=== PATIENT | male | born 1945 | race African-American/Black ===

== ENCOUNTER 2017-09-07 15:39 | Inpatient (IN) | payer OTHER ==
[~2017-09-07] VITALS: Ht 185.4 cm; Wt 79.4 kg
--- NOTE | 2017-09-07 16:02 | Emergency Room Report ---
History of Present Illness General Chief Complaint: Altered Level of Consciousness Source: EMS Present Illness HPI 71-year-old male, unknown past medical history with the exception of ? Recent pacemaker implantation, brought by EMS after being found altered home by family. EMS states that family called, patient was found down on the floor, not responding. No other history is able to be obtained as patient is awake and looking however not providing much history Allergies: Coded Allergies: No Known Allergies (Unverified , 09/07/17) Patient History Past Medical History: see triage record Past Surgical History: none Pertinent Family History: none Reviewed Nursing Documentation: PMH: Agreed, PSxH: Agreed Nursing Documentation-PMH Hx Cardiac Problems: Yes - Pacer Hx Hypertension: Yes Hx Pacemaker: Yes Review of Systems All Other Systems: limited - not giving history/altered Physical Exam Vital Signs Date Time Temp Pulse Resp B/P (MAP) Pulse Ox O2 Delivery O2 Flow Rate FiO2 09/07/17 15:47 98.4 84 16 90/64 98 Room Air Sp02 EP Interpretation: reviewed, normal General Appearance: other - Elderly male, sleeping but arousable, not answering questions, does not appear to be in distress Head: normocephalic, atraumatic Eyes: bilateral eye normal inspection, bilateral eye PERRL, bilateral eye EOMI ENT: normal ENT inspection, normal pharynx, normal voice, moist mucus membranes Neck: normal inspection, full range of motion, supple Respiratory: normal inspection, lungs clear, normal breath sounds, no respiratory distress, no retraction, no wheezing, chest symmetrical Cardiovascular #1: normal inspection, regular rate, rhythm, normal capillary refill, other - L upper chest with pacemaker incision eduardo, clean incision, no purulent drainage no erythema Cardiovascular #2: 2+ radial (R), 2+ radial (L) Gastrointestinal: normal inspection, non tender, soft, non-distended, no guarding Genitourinary: no CVA tenderness Musculoskeletal: normal inspection, back normal, non-tender Neurologic: other - Respond and most pain, opens eyes, visual contact, moves extremities spontaneously, however not providing history, lethargic Skin: normal inspection, normal color, no rash, warm/dry, well hydrated, normal turgor Medical Decision Making Diagnostic Impression: Primary Impression: Altered level of consciousness Additional Impressions: NSTEMI (non-ST elevated myocardial infarction) Renal failure Hypocalcemia Hyperkalemia ER Course 71-year-old male with altered mental status DDX: hypovolemic/dehydration vs. cardiac) vs. metabolic (hypoglycemia, hypoxia), vs neuro (seizure, CVA, intracranial bleed) Versus intoxication Plan: bgm, cbc, bmp, ekg, cxr CT head ER course: Patient initially hypotensive, responsive to fluids, now blood pressure systolic 110 Continues to be altered, can say his name and and then goes back to sleep, moves his extremities spontaneously, CT head is negative for acute intracranial disease Labs are remarkable for hypocalcemia which was supplemented, mild hyperkalemia, also with a troponin of 0.11 Heparin bolus and heparin drip given patient positive for opiates, 0.4mg narcan given -- pt is now more awake now Disposition: Patient requires admission to telemetry. Patient requires further workup of syncopal episode, further lab testing, serial troponins, cardiac monitoring D/W hospitalist Dr Contreras Please note that this Emergency Department Report was dictated using Topicmarksbit tripoler technology software, occasionally this can lead to erroneous entry secondary to interpretation by the dictation equipment EKG Diagnostic Results EP Interpretation: Yes Rate: normal Rhythm: NSR ST Segments: Atrial paced rhythm, T wave flattening in aVL ASA given to patient: No Rhythm Strip EP Interpretation: Yes Rate: 86 Rhythm: NSR, no PVCs, no ectopy Chest X-ray CXR: Ordered: Yes 1 view Indication: Altered mental status EP interpretation: Yes Interpretation: cardiomegaly, no infiltrate, pacemaker with leads noted Impression: cardiomegaly Electronically signed by Stephie Taylor MD Laboratory Tests Test 09/07/17 16:05 09/07/17 16:37 09/07/17 17:41 09/07/17 18:45 White Blood Count 9.0 K/UL (4.8-10.8) Red Blood Count 4.69 M/UL (4.70-6.10) L Hemoglobin 10.2 G/DL (14.2-18.0) L Hematocrit 34.7 % (42.0-52.0) L Mean Corpuscular Volume 74 FL (80-99) L Mean Corpuscular Hemoglobin 21.7 PG (27.0-31.0) L Mean Corpuscular Hemoglobin Concent 29.4 G/DL (32.0-36.0) L Red Cell Distribution Width 20.5 % (11.6-14.8) H Platelet Count 156 K/UL (150-450) Mean Platelet Volume 8.4 FL (6.5-10.1) Neutrophils (%) (Auto) 74.7 % (45.0-75.0) Lymphocytes (%) (Auto) 9.5 % (20.0-45.0) L Monocytes (%) (Auto) 13.3 % (1.0-10.0) H Eosinophils (%) (Auto) 1.4 % (0.0-3.0) Basophils (%) (Auto) 1.2 % (0.0-2.0) Prothrombin Time 12.8 SEC (9.30-11.50) H Prothrombin Time INR 1.2 (0.9-1.1) H PTT 31 SEC (23-33) Sodium Level 135 MMOL/L (136-145) L Potassium Level 5.5 MMOL/L (3.5-5.1) H Chloride Level 98 MMOL/L (98-107) Carbon Dioxide Level 23 MMOL/L (21-32) Anion Gap 14 mmol/L (5-15) Blood Urea Nitrogen 81 mg/dL (7-18) H Creatinine 3.5 MG/DL (0.55-1.30) H Estimate Glomerular Filtration Rate 21.1 mL/min (>60) Glucose Level 94 MG/DL (74-106) Calcium Level < 5.0 MG/DL (8.5-10.1) *L Total Bilirubin 1.4 MG/DL (0.2-1.0) H Direct Bilirubin < 0.1 MG/DL (0.0-0.3) Aspartate Amino Transferase (AST) 131 U/L (15-37) H Alanine Aminotransferase (ALT) 47 U/L (12-78) Alkaline Phosphatase 174 U/L (46-116) H Total Creatine Kinase < 1 U/L (26-308) L Creatine Kinase MB 25.4 NG/ML (0.0-3.6) H Creatine Kinase MB Relative Index 2500.0 Troponin I 0.117 ng/mL (0.000-0.056) Pro-B-Type Natriuretic Peptide 4865 pg/mL (0-125) H Total Protein 7.2 G/DL (6.4-8.2) Albumin 3.2 G/DL (3.4-5.0) L Globulin 4.0 g/dL Albumin/Globulin Ratio 0.8 (1.0-2.7) L Serum Alcohol < 3 mg/dL Lactic Acid Level 2.10 mmol/L (0.66-2.22) Pending Urine Color Yellow Urine Appearance Clear Urine pH 6 (4.5-8.0) Urine Specific [place] 1.010 (1.005-1.035) Urine Protein 1+ (NEGATIVE) H Urine Glucose (UA) Negative (NEGATIVE) Urine Ketones Negative (NEGATIVE) Urine Occult Blood 1+ (NEGATIVE) H Urine Nitrite Negative (NEGATIVE) Urine Bilirubin Negative (NEGATIVE) Urine Urobilinogen 1 MG/DL (0.0-1.0) H Urine Leukocyte Esterase Negative (NEGATIVE) Urine RBC 2-4 /HPF (0 - 0) H Urine WBC 0-2 /HPF (0 - 0) Urine Squamous Epithelial Cells None /LPF (NONE/OCC) Urine Bacteria Few /HPF (NONE) Urine Opiates Screen Positive (NEGATIVE) H Urine Barbiturates Screen Negative (NEGATIVE) Phencyclidine (PCP) Screen Negative (NEGATIVE) Urine Amphetamines Screen Negative (NEGATIVE) Urine Benzodiazepines Screen Negative (NEGATIVE) Urine Cocaine Screen Negative (NEGATIVE) Urine Marijuana (THC) Screen Negative (NEGATIVE) Test 09/07/17 19:16 Sodium Level Pending Potassium Level Pending Chloride Level Pending Carbon Dioxide Level Pending Blood Urea Nitrogen Pending Creatinine Pending Estimate Glomerular Filtration Rate Pending Glucose Level Pending Calcium Level Pending Total Bilirubin Pending Aspartate Amino Transferase (AST) Pending Alanine Aminotransferase (ALT) Pending Alkaline Phosphatase Pending Troponin I Pending Total Protein Pending Albumin Pending Globulin Pending CT/MRI/US Diagnostic Results CT/MRI/US Diagnostic Results : Imaging Test Ordered: CT Head Last Vital Signs Date Time Temp Pulse Resp B/P (MAP) Pulse Ox O2 Delivery O2 Flow Rate FiO2 09/07/17 15:47 98.4 84 16 90/64 98 Room Air Disposition: ADMITTED INPATIENT Condition: Stephie Lujan M.D. Sep 07, 2017 16:02
[2017-09-07] MEDS ORDERED: ASPIR 8181 MG ORAL (16:38)
[2017-09-07 16:41] LABS: ANION GAP 14 mmol/L (5-15); CARBON DIOXIDE 23 MMOL/L (21-32); CHLORIDE 98 MMOL/L (98-107); CREATININE 3.5 MG/DL (0.55-1.30); GLOMERULAR FILTRATION RATE 21.1 mL/min (>60); POTASSIUM 5.5 MMOL/L (3.5-5.1); SODIUM 135 MMOL/L (136-145)
[2017-09-07 16:43] LABS: BASOPHILS % (AUTO) 1.2 % (0.0-2.0); EOSINOPHILS % (AUTO) 1.4 % (0.0-3.0); LYMPHOCYTES % (AUTO) 9.5 % (20.0-45.0); MEAN CORPUSCULAR HEMOGLOBIN 21.7 PG (27.0-31.0); MEAN CORPUSCULAR HGB CONC 29.4 G/DL (32.0-36.0); MEAN CORPUSCULAR VOLUME 74 FL (80-99); MEAN PLATELET VOLUME 8.4 FL (6.5-10.1); MONOCYTES % (AUTO) 13.3 % (1.0-10.0); NEUTROPHILS % (AUTO) 74.7 % (45.0-75.0); PLATELET COUNT 156 K/UL (150-450); RED BLOOD COUNT 4.69 M/UL (4.70-6.10); RED CELL DISTRIBUTION WIDTH 20.5 % (11.6-14.8)
[2017-09-07 16:55] LABS: ALANINE AMINOTRANSFERASE 47 U/L (12-78); ALBUMIN/GLOBULIN RATIO 0.8 (1.0-2.7); ASPARTATE AMINO TRANSFERASE 131 U/L (15-37); CKMB 25.4 NG/ML (0.0-3.6); TOTAL PROTEIN 7.2 G/DL (6.4-8.2)
[2017-09-07 16:59] LABS: CALCIUM < 5.0 MG/DL (8.5-10.1)
[2017-09-07 17:01] LABS: BILIRUBIN,DIRECT < 0.1 MG/DL (0.0-0.3)
[2017-09-07] MEDS ORDERED: Calcium Gluconate 1gm/10ml vial ONE (17:05)
[2017-09-07] MEDS ORDERED: Calcium Gluconate 10% 1 GM in NS 110 ML IVPB ONE (17:15)
[2017-09-07 17:17] LABS: REFLEX LACTIC ACID YES OR NO YES
[2017-09-07 17:19] LABS: INR 1.2 (0.9-1.1); PROTHROMBIN TIME 12.8 SEC (9.30-11.50)
[2017-09-07] MEDS ORDERED: Heparin 5000 units/ml inj IV ONE (17:45)
[2017-09-07] MEDS ORDERED: Heparin 25,000u/D5W 500ml 500 ML IV SCH (17:45)
[2017-09-07] MEDS ORDERED: PRAVASTATIN SOD20 M1 ORAL (17:48)
[2017-09-07] MEDS ORDERED: METOPROLOL SUCC25 MG ORAL (17:48)
[2017-09-07] MEDS ORDERED: FLUTICASONE PRO16 G1 NASAL (17:48)
[2017-09-07] MEDS ORDERED: CARVEDILOL3.125 MG ORAL (17:48)
[2017-09-07] MEDS ORDERED: LEVOTHYROXINE50 MCG ORAL (17:48)
[2017-09-07] MEDS ORDERED: CARDIZEM30 M1 PO (17:48)
[2017-09-07] MEDS ORDERED: PROPAFENONE HC150 MG PO (17:48)
[2017-09-07] MEDS ORDERED: FUROSEMIDE40 MG ORAL (17:48)
[2017-09-07] MEDS ORDERED: AMIODARONE HCL400 M1 ORAL (17:48)
[2017-09-07 17:58] VITALS: BP 96/44
[2017-09-07 18:15] LABS: APPEARANCE,URINE CLEAR; KETONES,URINE NEGATIVE (NEGATIVE); LEUKOCYTE ESTERASE ,URINE NEGATIVE (NEGATIVE); NITRITE,URINE NEGATIVE (NEGATIVE); PH,URINE 6 (4.5-8.0); PROTEIN,URINE 1+ (NEGATIVE); UROBILINOGEN,URINE 1 MG/DL (0.0-1.0)
[2017-09-07 18:32] LABS: BACTERIA,URINE FEW /HPF; WBC,URINE 0-2 /HPF (0 - 0)
[2017-09-07] MEDS ORDERED: Sodium Bicarbonate 50ml Carp IV ONE (18:45)
[2017-09-07] MEDS ORDERED: Naloxone 0.4mg/ml Inj IVP ONE (19:00)
[2017-09-07 19:31] VITALS: BP 123/106
[2017-09-07 19:40] LABS: ANION GAP 11 mmol/L (5-15); CALCIUM 7.3 MG/DL (8.5-10.1); CARBON DIOXIDE 23 MMOL/L (21-32); CHLORIDE 102 MMOL/L (98-107); CREATININE 3.1 MG/DL (0.55-1.30); GLOMERULAR FILTRATION RATE 24.2 mL/min (>60); POTASSIUM 4.1 MMOL/L (3.5-5.1); SODIUM 136 MMOL/L (136-145)
[2017-09-07 19:55] LABS: ALANINE AMINOTRANSFERASE 44 U/L (12-78); ALBUMIN/GLOBULIN RATIO 0.7 (1.0-2.7); ASPARTATE AMINO TRANSFERASE 155 U/L (15-37); TOTAL PROTEIN 6.8 G/DL (6.4-8.2)
[2017-09-07 20:25] VITALS: BP 127/78
[2017-09-08] VITALS: BP 102/60
--- NOTE | 2017-09-08 03:00 | History and Physical Report ---
DATE OF ADMISSION: 09/07/2017 REASON FOR ADMISSION: Altered mentation. HISTORY OF PRESENT ILLNESS: This 71-year-old male was found by EMS altered at home by family members. Apparently, he was found down on the floor unresponsive and family members summoned paramedics. No history is available at this time otherwise. PAST MEDICAL HISTORY: The patient apparently had a recent pacemaker implant. His past medical history is otherwise unknown. ALLERGIES: None known. SOCIAL HISTORY: Not obtainable. FAMILY HISTORY: Unknown. REVIEW OF SYSTEMS: Not obtainable. PHYSICAL EXAMINATION: GENERAL: He does open his eyes when his name is called, but he is otherwise unable to verbalize. VITAL SIGNS: Blood pressure 90/64, pulse 84, respiratory rate 16, and afebrile. HEENT: Temporal wasting. Oropharynx clear. Mucous membranes dry. NECK: Supple. CHEST: Chest wall with pacemaker pocket site without erythema, but Steri-Strips in place. LUNGS: With coarse rhonchi. CARDIAC: Regular rhythm and rate. Normal S1 and S2 with no murmur, rub, or gallop. ABDOMEN: Soft, nontender. EXTREMITIES: Without edema. NEUROLOGIC: The patient is not responding to questioning. He does mobilize himself out of bed. There appears to be increased tone. Strength is symmetric. LABORATORY AND DIAGNOSTIC DATA: Toxicology screen positive for opiates. Laboratory, sodium 135, potassium 5.5, bicarbonate 23, BUN 81, and creatinine 3.5. Troponin 0.117. Pro-natriuretic peptide 4865. AST is elevated at 131, ALT 47, and alkaline phosphatase 174 with total bilirubin 1.4. White count 9, hemoglobin 10. Urinalysis with no active sediment. EKG, atrial pacing with no acute process. Chest x-ray, no acute process. IMPRESSION: 1. Altered mental status. 2. Metabolic encephalopathy. 3. Possible opiate toxicity. 4. Possible aspiration. 5. Recent pacemaker implant. 6. Renal failure, questionable acuity. 7. Microcytic anemia. 8. Transaminitis. 9. Acute myocardial infarction. 10. Moderate protein-calorie malnutrition with albumin of 2.8. 11. Acute and chronic congestive heart failure, likely diastolic. 12. Rhabdomyolysis 13. Paroxysmal atrial fibrillation PLAN: 1. Cardiac monitoring. 2. Oral aspirin. 3. Beta-blockade. 4. Saline hydration. 5. Check ammonia level. 6. Metabolic profile. 7. Reviewed CT of the head, which was reported as negative. 8. Attempt to contact family members to expand database. 9. Crawford catheter placement. Jasen Contreras M.D. DR: ANT JOB#: [id number] CC: SUSANA
[2017-09-08 04:36] VITALS: BP 96/60
[2017-09-08 06:54] LABS: BASOPHILS % (AUTO) 0.7 % (0.0-2.0); EOSINOPHILS % (AUTO) 1.6 % (0.0-3.0); LYMPHOCYTES % (AUTO) 16.6 % (20.0-45.0); MEAN CORPUSCULAR HEMOGLOBIN 21.8 PG (27.0-31.0); MEAN CORPUSCULAR HGB CONC 29.8 G/DL (32.0-36.0); MEAN CORPUSCULAR VOLUME 73 FL (80-99); MEAN PLATELET VOLUME 6.2 FL (6.5-10.1); MONOCYTES % (AUTO) 13.2 % (1.0-10.0); PLATELET COUNT 127 K/UL (150-450); RED BLOOD COUNT 4.45 M/UL (4.70-6.10); RED CELL DISTRIBUTION WIDTH 21.8 % (11.6-14.8); WHITE BLOOD COUNT 6.2 K/UL (4.8-10.8)
[2017-09-08 07:19] LABS: ALANINE AMINOTRANSFERASE 60 U/L (12-78); ALBUMIN/GLOBULIN RATIO 0.6 (1.0-2.7); ANION GAP 11 mmol/L (5-15); ASPARTATE AMINO TRANSFERASE 233 U/L (15-37); CALCIUM 7.4 MG/DL (8.5-10.1); CARBON DIOXIDE 25 MMOL/L (21-32); CHLORIDE 104 MMOL/L (98-107); CKMB 29.8 NG/ML (0.0-3.6); CREATININE 2.7 MG/DL (0.55-1.30); GLOMERULAR FILTRATION RATE 28.5 mL/min (>60); MAGNESIUM 1.8 MG/DL (1.8-2.4); POTASSIUM 3.9 MMOL/L (3.5-5.1); SODIUM 140 MMOL/L (136-145); TOTAL PROTEIN 6.9 G/DL (6.4-8.2)
[2017-09-08 07:25] LABS: BILIRUBIN,DIRECT 0.8 MG/DL (0.0-0.3)
[2017-09-08 08:00] VITALS: BP 127/64
--- NOTE | 2017-09-08 08:20 | Diagnostic Imaging Report ---
Indication: Altered mental status Technique: Continuous helical CT scanning of the head was performed without intravenous contrast material. Axial and coronal 5 mm sections were generated. Dose: Total Dose Length Product - DLP [address] Dose Index - CTDIvol(s) 70.38 mGy. Automated exposure control was utilized for dose reduction. Comparison: None Findings: There is prominence of cortical sulci in the ventricular system. Periventricular low density is present. There is no shift of midline structures. No abnormal extra-axial fluid collections are noted. There is no evidence of intracerebral bleeding. No other abnormal high or low density areas are noted within the brain. Impression: Atrophy. Chronic small vessel white matter ischemic change. Otherwise negative. No acute abnormality. The above report is concordant with preliminary reading by [employer] . The CT scanner at [facility] is accredited by the [employer] and the scans are performed using protocols designed to limit radiation exposure to as low as reasonably achievable to attain images of sufficient resolution adequate for diagnostic evaluation.
[2017-09-08] MEDS: Heparin 5000 units/ml inj SUBQ SCH ×2 (09:00→20:18)
[2017-09-08] MEDS: Aspirin Baby 81mg ORAL SCH (10:03)
[2017-09-08] MEDS: Metoprolol 25mg tab ORAL SCH ×2 (10:03→20:26)
--- NOTE | 2017-09-08 10:04 | Diagnostic Imaging Report ---
Indication: Chest pain Technique: XRAY Chest 1v Comparison:None Findings: Heart is normal in size. There is an ICD on the left. Wires are present in the right atrium and right ventricle. Lungs are clear. No pleural fluid. No pneumothorax. Metallic fragments are noted over the right acromion. Impression: ICD on the left. No acute abnormality.
--- NOTE | 2017-09-08 11:36 | Diagnostic Imaging Report ---
Indication: Reason For Exam: SOB Technique: XRAY Chest 1v. Comparison: 09/07/2017 Findings: The cardiomediastinal silhouette is unchanged. No new infiltrates are identified. Impression: No significant change from prior examination.
[2017-09-08 12:00] VITALS: BP 127/78
[2017-09-08] MEDS: guaiFENesin DM 100mg/5ml ORAL PRN ×2 (15:46→20:10)
[2017-09-08 16:00] VITALS: BP 96/60
[2017-09-08] MEDS ORDERED: cefTRIAXone 1 GM in D5W 55 ML IVPB SCH (16:00)
--- NOTE | 2017-09-08 16:30 | Consultation ---
DATE OF CONSULTATION: 09/08/2017 PULMONARY CONSULTATION CONSULTING PHYSICIAN: Frank Bolton M.D. REASON FOR CONSULTATION: Pneumonia. HISTORY: The patient is a 71-year-old male, found down on the floor unresponsive and brought into the emergency room. The patient was diagnosed with acute encephalopathy and possible aspiration. I was called to assist and evaluate further. PAST MEDICAL HISTORY: Notable for pacemaker now with admitting diagnoses of possible aspiration; renal failure, acute; and acute myocardial infarction. MEDICATIONS: Reviewed. ALLERGIES: Reviewed. PHYSICAL EXAMINATION: GENERAL: A well-developed male, advanced age. VITAL SIGNS: Noted and reviewed. Blood pressure 127/64 and saturation 96% on room air. LUNGS: Moderate air entry. No rhonchi or wheezes. CARDIAC: S1 and S2 regular rhythm. ABDOMEN: Soft and nontender. EXTREMITIES: No edema. NEUROLOGICAL: Grossly nonfocal, but confused. LABORATORY AND DIAGNOSTIC DATA: Lab data otherwise reviewed. Hemoglobin 9.7. BUN and creatinine 70 and 2.7. IMPRESSION: 1. Possible pneumonia versus pulmonary edema. 2. Acute encephalopathy. 3. Acute renal failure. 4. Hypertension. 5. Pacemaker. RECOMMENDATIONS: Supportive care. No clear need for antibiotics at this time. We will follow up x-ray and exam. We will follow natriuretic peptide and assess further. We will monitor the patient further from a pulmonary standpoint if needed. Frank Bolton M.D. DR: OMARI JOB#: [id number] CC:
--- NOTE | 2017-09-08 16:45 | Consultation ---
DATE OF CONSULTATION: 09/08/2017 INFECTIOUS DISEASES CONSULTATION CONSULTING PHYSICIAN: Sharon Bynum M.D. REFERRING PHYSICIAN: Jasen Contreras M.D. REASON FOR CONSULTATION: Altered mental status. HISTORY OF PRESENTING ILLNESS: This is a 71-year-old gentleman with history of pacemaker placement who came in unresponsive. An Infectious Diseases consultation has been obtained for altered mental status. PAST MEDICAL HISTORY: 1. History of recent pacemaker implant. 2. History of hypertension. 3. History of atrial fibrillation. MEDICATIONS: As an inpatient, the patient is on aspirin, metoprolol, Tylenol. ALLERGIES: No known drug allergies. SOCIAL HISTORY: No history of smoking or alcohol but he has history of use of opiates. FAMILY HISTORY: Unknown. REVIEW OF SYSTEMS: RESPIRATORY: No fever or chills. He does have cough and shortness of breath. No chest pain. CARDIAC: No chest pain. No palpitations. No dizziness. No syncope. GASTROINTESTINAL: No nausea. No vomiting. No abdominal pain or diarrhea. PHYSICAL EXAMINATION: VITAL SIGNS: Temperature of 97.8 degrees, T-max of 98.4 degrees, pulse of 86, respiratory rate of 20, blood pressure 127/64, O2 saturation of 96%. HEENT: Pupils equally reactive to light and accommodation. Mouth appears clean without thrush. NECK: Supple. No adenopathy. No JVD. CARDIOVASCULAR: Regular rate and rhythm. No murmurs. Left chest wound is clean. LUNGS: Clear to auscultation bilaterally. No crackles. No wheezes. ABDOMEN: Soft and nontender. No organomegaly. EXTREMITIES: No cyanosis. No clubbing. No edema. LABORATORY DATA: White count 6.2, hemoglobin 9.7, hematocrit 32.6, MCV 73, platelet count of 127 with neutrophils of 68%. Sodium 140, potassium 3.9, chloride 104, bicarb 25, BUN 70, creatinine 2.7, glucose 85, calcium 7.4. Total bilirubin 1.4, direct bilirubin 0.8, AST 233, ALT 60, alkaline phosphatase 145. Ammonia level less than 3. CK of 5197, CK-MB 29.8. Troponin of 0.178. Beta nitrate peptide 2795. Total protein 6.9, albumin 2.7. UA is showing 0 to 2 white cells. Chest x-ray is showing no new infiltrates. CT of head showing atrophy, chronic small vessel white matter ischemic changes noted. Chest x-ray was unremarkable. ASSESSMENT: 1. This is a 71-year-old gentleman with history of hypertension and atrial fibrillation, who comes in with altered mental status that has resolved currently. It may be secondary to opioid toxicity. 2. He does not have any sign of pneumonia currently or any urinary tract infection. 3. Would be concerned regarding rhabdomyolysis. 4. Status post recent pacemaker implant, the site appears clean. PLAN: 1. Continue off antibiotics for now. 2. We will follow up the patient clinically. I would like to thank, Dr. Contreras for this consultation. Sharon Bynum M.D. DR: Brayan JOB#: [id number] CC: Jasen Contreras M.D.
[2017-09-08] MEDS ORDERED: NS 500ML ONE (17:35)
--- NOTE | 2017-09-08 18:15 | Progress Note ---
DATE: 09/08/2017 INTERNAL MEDICINE PROGRESS NOTE SUBJECTIVE: The patient complains of cough, congestion. He wants pain medications, although he could not describe where the pain is. He is more alert and interactive today. OBJECTIVE: VITAL SIGNS: Blood pressure 127/64, pulse 84, respiratory rate 20 and afebrile. Earlier blood pressure was 96/60. LUNGS: Coarse breath sounds. No wheezing. CARDIAC: Regular rhythm and rate. Normal S1 and S2 with positive fourth heart sound. No sinus tenderness. No edema. ABDOMEN: Nontender. LABORATORY AND DIAGNOSTIC DATA: Chest x-ray repeated today with no acute process. Laboratories notable for BUN 70 and creatinine 2.7. Pro-natriuretic peptide 2795. Troponin 0.178. Albumin 2.7. White count 6.2 and hemoglobin 9.7. IMPRESSION: 1. Condition remains critical with guarded prognosis. 2. Acute myocardial ischemia. 3. Upper respiratory tract infection. 4. Paroxysmal bronchospasm, possible aspiration status post opiate overdose. 5. Rhabdomyolysis with elevated creatine kinase. 6. Acute on chronic renal failure, improving with hydration. 7. Anemia, likely due to chronic kidney disease. PLAN: 1. Continue hydration. 2. Empiric antibiotics for upper respiratory tract infection. 3. Bronchodilators. 4. Antitussives. 5. Swallow evaluation. 6. Antiplatelet therapy with aspirin. 7. Cautious use of beta-rickie. 8. DVT prophylaxis. 9. Continue cardiac monitoring. Jasen Contreras M.D. DR: ANT JOB#: [id number] CC:
--- NOTE | 2017-09-08 19:15 | Cardiology Report ---
APPROVED REPORT EKG Measurement Heart [id number] Atrial pacing Nonspecific T wave abnormality Prolonged QT Abnormal ECG
[2017-09-08 20:00] VITALS: BP 123/76
[2017-09-09] VITALS (7 sets, daily range): BP systolic 114–148; BP diastolic 61–102
[2017-09-09] MEDS: guaiFENesin DM 100mg/5ml ORAL PRN ×4 (04:18→20:48)
--- NOTE | 2017-09-09 07:32 | Cardiology Report ---
APPROVED REPORT EXAM: Two-dimensional and M-mode echocardiogram with Doppler and color Doppler. INDICATION Acute myocard infarction M-Mode DIMENSIONS IVSd0.8 (0.7-1.1cm)Left Atrium (MM)3.4 (1.6-4.0cm) LVDd5.0 (3.5-5.6cm)Aortic Root3.4 (2.0-3.7cm) PWd1.0 (0.7-1.1cm)Aortic Cusp Exc.2.0 (1.5-2.0cm) LVDs4.2 (2.5-4.0cm) PWs1.3 cm Technically difficult study due to patient moving. Normal left ventricular chamber size. Mild global left ventricular hypokinesis. Left ventricular ejection fraction estimated to be 45-50%. No evidence of left ventricular hypertrophy. No evidence of pericardial or pleural effusion. Mild bi-atrial enlargement by 2D. Focal aortic valve sclerosis with adequate cusp excursion. Thickened mitral valve leaflets with normal excursion. Mild mitral annulus and aortic root calcification. Pulmonic valve is well visualized. Normal tricuspid valve structure. IVC is not obtainable. Probable pacemaker wire present in the right side chambers. A color flow and spectral Doppler study was performed and revealed: No aortic regurgitation. Trace mitral regurgitation. Normal mitral diastolic function. Mild tricuspid regurgitation. Tricuspid systolic velocities suggests peak right ventricular systolic pressure of 22mmHg
--- NOTE | 2017-09-09 08:07 | Pulmonology Progress Note ---
Assessment/Plan Assessment/Plan IMPRESSION: 1. Possible pneumonia versus pulmonary edema. 2. Acute encephalopathy. 3. Acute renal failure. 4. Hypertension. 5. Pacemaker. 6. some congestion PLAN care noted CT chest respiratory care oxygen taper IV as able impression, plan, and exam edited and reviewed in detail care discussed with RN Subjective Allergies: Coded Allergies: No Known Allergies (Unverified , 09/07/17) Subjective some sputum noted less sob Objective Last 24 Hour Vital Signs Date Time Temp Pulse Resp B/P (MAP) Pulse Ox O2 Delivery O2 Flow Rate FiO2 09/09/17 04:00 98.6 86 20 131/69 96 Nasal Cannula 09/09/17 04:00 86 09/09/17 00:00 98.8 86 20 114/67 98 Room Air 09/09/17 00:00 86 09/08/17 20:26 86 126/67 09/08/17 20:00 86 09/08/17 20:00 99.1 86 20 123/76 94 Room Air 86 09/08/17 16:59 98.4 09/08/17 16:00 87 09/08/17 16:00 97.0 86 20 96/60 96 Room Air 86 09/08/17 12:00 98.4 102 20 127/78 96 Room Air 86 09/08/17 12:00 86 09/08/17 10:03 86 127/64 Intake and Output 09/08/17 09/09/17 19:00 07:00 Intake Total 708 ml 400 ml Output Total 300 ml 1100 ml Balance 408 ml -700 ml Intake Oral 708 ml 400 ml Output Urine Total 300 ml 1100 ml # Voids 2 Objective GENERAL: A well-developed male, advanced age. LUNGS: Moderate air entry. No rhonchi or wheezes. CARDIAC: S1 and S2 regular rhythm. ABDOMEN: Soft and nontender. EXTREMITIES: No edema. NEUROLOGICAL: Grossly nonfocal, but confused. Microbiology Date/Time Source Procedure Growth Status 09/07/17 16:37 Blood Blood Culture - Preliminary NO GROWTH AFTER 24 HOURS Resulted 09/07/17 16:30 Blood Blood Culture - Preliminary NO GROWTH AFTER 24 HOURS Resulted Current Medications Medications (Trade) Dose Ordered Sig/Mando Route PRN Reason Start Time Stop Time Status Last Admin Dose Admin Acetaminophen (Tylenol) 650 mg Q4H PRN ORAL Mild Pain/Temp > 100.5 09/07/17 23:45 10/07/17 23:44 09/09/17 04:19 Aspirin (ASA) 81 mg DAILY ORAL 09/08/17 09:00 10/08/17 08:59 09/08/17 10:03 Ceftriaxone Sodium 1 gm/ Dextrose 55 ml @ 110 mls/hr Q24H IVPB 09/08/17 16:00 09/15/17 15:59 09/08/17 16:00 Guaifenesin/ Dextromethorphan (Robitussin DM) 5 ml Q4H PRN ORAL For Cough 09/08/17 14:45 10/08/17 14:44 09/09/17 04:18 Heparin Sodium (Porcine) (Heparin 5000 units/ml) 5,000 units EVERY 12 HOURS SUBQ 09/08/17 09:00 10/08/17 08:59 09/08/17 20:18 Metoprolol Tartrate (Lopressor) 25 mg Q12HR ORAL 09/08/17 09:00 10/08/17 08:59 09/08/17 20:26 Sodium Chloride 1,000 ml @ 100 mls/hr Q10H IV 09/08/17 00:00 10/08/17 00:00 09/09/17 06:42 CECY VALLEJO Sep 09, 2017 08:07
[2017-09-09] MEDS: Aspirin Baby 81mg ORAL SCH (09:05)
[2017-09-09] MEDS: Metoprolol 25mg tab ORAL SCH (09:05)
[2017-09-09 09:08] LABS: ANION GAP 10 mmol/L (5-15); CALCIUM 7.4 MG/DL (8.5-10.1); CARBON DIOXIDE 22 MMOL/L (21-32); CHLORIDE 103 MMOL/L (98-107); GLOMERULAR FILTRATION RATE 40.2 mL/min (>60); SODIUM 135 MMOL/L (136-145)
[2017-09-09] MEDS: Heparin 5000 units/ml inj SUBQ SCH ×2 (09:11→20:49)
--- NOTE | 2017-09-09 11:56 | Infectious Diseases Prog Note ---
Assessment/Plan Assessment/Plan antibiotics : ceftriaxone A 1. pneumonia 2. renal failure improving 3. HTN 4. atrial fibrillation P 1. continue ceftriaxone 2. sputum culture 3. will follow up cultures Subjective Constitutional: Denies: fever, chills Respiratory: Reports: shortness of breath, dry cough Gastrointestinal/Abdominal: Denies: nausea, vomiting, diarrhea Musculoskeletal: Reports: pain Allergies: Coded Allergies: No Known Allergies (Unverified , 09/07/17) Objective Vital Signs Last 24 Hour Vital Signs Date Time Temp Pulse Resp B/P (MAP) Pulse Ox O2 Delivery O2 Flow Rate FiO2 09/09/17 09:05 80 121/61 09/09/17 08:00 86 09/09/17 08:00 98.1 80 20 121/61 97 Nasal Cannula 09/09/17 04:00 98.6 86 20 131/69 96 Nasal Cannula 09/09/17 04:00 86 09/09/17 00:00 98.8 86 20 114/67 98 Room Air 09/09/17 00:00 86 09/08/17 20:26 86 126/67 09/08/17 20:00 86 09/08/17 20:00 99.1 86 20 123/76 94 Room Air 86 09/08/17 16:59 98.4 09/08/17 16:00 87 09/08/17 16:00 97.0 86 20 96/60 96 Room Air 86 09/08/17 12:00 98.4 102 20 127/78 96 Room Air 86 09/08/17 12:00 86 Height (Feet): 6 Height (Inches): 1.00 Weight (Pounds): 175 Respiratory/Chest: lungs clear Cardiovascular: normal rate, regular rhythm, no gallop/murmur Abdomen: soft, non tender Extremities: no edema Microbiology Date/Time Source Procedure Growth Status 09/07/17 16:37 Blood Blood Culture - Preliminary NO GROWTH AFTER 24 HOURS Resulted 09/07/17 16:30 Blood Blood Culture - Preliminary NO GROWTH AFTER 24 HOURS Resulted Laboratory Tests Test 09/09/17 07:20 Sodium Level 135 MMOL/L (136-145) L Potassium Level 4.0 MMOL/L (3.5-5.1) Chloride Level 103 MMOL/L (98-107) Carbon Dioxide Level 22 MMOL/L (21-32) Anion Gap 10 mmol/L (5-15) Blood Urea Nitrogen 55 mg/dL (7-18) H Creatinine 2.0 MG/DL (0.55-1.30) H Estimat Glomerular Filtration Rate 40.2 mL/min (>60) Glucose Level 83 MG/DL (74-106) Calcium Level 7.4 MG/DL (8.5-10.1) L Total Creatine Kinase 2598 U/L (26-308) H [employer] Sep 09, 2017 11:56
[2017-09-09] MEDS ORDERED: Amiodarone 200mg tab ORAL SCH (12:15)
--- NOTE | 2017-09-09 14:46 | Diagnostic Imaging Report ---
Indication: Chest pain Technique: Continuous helical transaxial imaging of the chest was obtained from the thoracic inlet to the upper abdomen. No intravenous contrast was administered. Coronal 2-D reformats were also obtained. Total Dose length Product (DLP): 746.[address] Dose Index Volume (CTDIvol): 17.67 mGy Comparison: none Findings: Trace basilar effusions are present. Reticular and groundglass opacities may represent atelectasis at both lung bases. Pacemaker is present. Arterial calcifications are noted. Visualized part of the upper abdomen is unremarkable. IMPRESSION: Trace basilar pleural effusions and suspected atelectasis. Atherosclerotic disease. Pacemaker The CT scanner at [facility] is accredited by the [employer] [place] and the scans are performed using dose optimization techniques as appropriate to a performed exam including Automatic Exposure control.
--- NOTE | 2017-09-09 14:49 | Diagnostic Imaging Report ---
Indication: Cough and congestion. Technique: Continuous helical transaxial imaging of the maxillofacial structures obtained without intravenous contrast administration. Coronal 2-D reformats were also obtained. Study obtained in a Siemens sensation [address] Automatic Exposure Control was utilized. Total Dose length Product (DLP): [address] Dose Index Volume (CTDIvol): 28.19 mGy Comparison: None Findings: Paranasal sinuses are clear. The orbits are unremarkable. There is an old fracture of the left medial orbital wall which is indented. Arterial calcifications are noted. TMJs are unremarkable. There is no fracture seen. IMPRESSION: No acute findings. Old left medial orbital wall fracture Atherosclerotic disease The CT scanner at [facility] is accredited by the [employer] and the scans are performed using dose optimization techniques as appropriate to a performed exam including Automatic Exposure control.
[2017-09-09] MEDS: cefTRIAXone 1 GM in D5W 55 ML IVPB SCH (16:07)
--- NOTE | 2017-09-09 17:30 | Progress Note ---
DATE: 09/09/2017 CARDIOLOGY AND INTERNAL MEDICINE PROGRESS NOTE SUBJECTIVE: The patient continues to complain of cough and congestion. He was seen by a dipper and drier today. Chest x-ray remains clear. Oxygen saturation is 97% on nasal cannula. OBJECTIVE: VITAL SIGNS: Blood pressure 121/61, pulse 80, respiratory rate 18, and afebrile. LUNGS: Coarse breath sounds. No wheezing. HEART: Regular rhythm and rate. Normal S1 and S2. ABDOMEN: Soft. EXTREMITIES: No edema. LABORATORY AND DIAGNOSTIC DATA: BUN and creatinine decreased to 55/2.0. CK decreased to 2598. Echocardiogram yesterday was reviewed and revealed mildly depressed ejection fraction. IMPRESSION: 1. Possible sinusitis. 2. Probable acute bronchitis. 3. Rhabdomyolysis. 4. Acute renal failure. 5. Hypertensive cardiomyopathy. 6. Acute on chronic systolic and diastolic congestive heart failure. 7. Elevated troponin levels likely due to rhabdomyolysis. 8. No signs of acute ischemia noted. 9. Opiate abuse. PLAN: 1. Continue hydration. 2. Follow up cardiorenal parameters. 3. Monitor volume status. 4. Serial CK. 5. Avoid opiates. 6. Check CT scans of the chest and sinuses. Jasen Contreras M.D. : Junior JOB#: [id number] CC:
[2017-09-09] MEDS: Acetaminophen 500mg (ES) tab ORAL PRN (17:42)
--- NOTE | 2017-09-09 19:15 | Consultation ---
DATE OF CONSULTATION: NEPHROLOGY CONSULTATION ATTENDING PHYSICIAN: Jasen Contreras M.D. REASON FOR CONSULTATION: Elevated BUN and creatinine. HISTORY OF PRESENT ILLNESS: This is a 71-year-old male, who was admitted by the attending physician with altered level of consciousness. I am asked to see the patient for elevated BUN and creatinine. PAST MEDICAL HISTORY: 1. Metabolic encephalopathy, on this admission. 2. Chronic kidney disease, etiology unclear. 3. Acute myocardial infarction. 4. History of chronic diastolic heart failure. 5. Status post pacemaker implantation. CURRENT MEDICATIONS: The patient is on IV Rocephin, IV fluids, normal saline, Tylenol p.r.n., amiodarone, baby aspirin, guaifenesin p.r.n., subcutaneous heparin, Synthroid, and metoprolol orally. ALLERGIES: No known drug allergies. FAMILY HISTORY: Unremarkable. SOCIAL HISTORY: He lives at home. HABITS: Nonsmoker and nondrinker. There is no history of illicit drug abuse. REVIEW OF SYSTEMS: HEENT: Hearing and eyesight are normal. ENDOCRINE: No history of diabetes, thyroid or adrenal problems. RESPIRATORY: He denies shortness of breath, cough or hemoptysis. CARDIOVASCULAR: He denies chest pain or palpitations. GASTROINTESTINAL: No history of hematochezia, melena, hematemesis, diarrhea, or constipation. NEUROLOGICAL: Please refer to history of present illness. PHYSICAL EXAMINATION: GENERAL: This is an elderly male, who is in no acute distress. VITAL SIGNS: Blood pressure 124/69, pulse 86 and regular, respirations 20, and temperature 98 degrees. HEENT: The head is normocephalic and atraumatic. Pupils are equal, round and react to light and accommodation consensually. NECK: Supple. Trachea midline. There was no lymphadenopathy or thyromegaly. LUNGS: Clear to auscultation and percussion. HEART: Regular rate and rhythm without rubs, murmurs, or gallops. ABDOMEN: Soft. Bowel sounds were active. EXTREMITIES: No clubbing, cyanosis, or edema. NEUROLOGICAL: He is alert and oriented x4. Cranial nerves II through XII intact. LABORATORY AND ANCILLARY DATA: Hemoglobin today 9.7, otherwise CBC within normal limits. Also platelet count was noted to be low at 127,000. Urine toxicology screen on admission, positive for urine opiates. Chemistry, BUN 55 and creatinine 2. CPK a on admission 5197 and today 2598. ASSESSMENT: 1. Acute rhabdomyolysis. 2. Acute versus chronic kidney disease. PLAN: Continue current therapy. Check laboratory results and renal ultrasound. Thank you, Dr. Contreras, for letting me to participate in the care of this patient. Radha Aguilar M.D. DR: WYATT JOB#: [id number] CC:
[2017-09-10] VITALS: BP 113/72
[2017-09-10] MEDS: Acetaminophen 500mg (ES) tab ORAL PRN ×3 (00:49→21:08)
[2017-09-10 04:15] VITALS: BP 135/75
[2017-09-10] MEDS: guaiFENesin DM 100mg/5ml ORAL PRN ×4 (04:53→21:08)
[2017-09-10 06:42] LABS: BASOPHILS % (AUTO) 0.9 % (0.0-2.0); EOSINOPHILS % (AUTO) 4.6 % (0.0-3.0); LYMPHOCYTES % (AUTO) 30.8 % (20.0-45.0); MEAN CORPUSCULAR HEMOGLOBIN 21.5 PG (27.0-31.0); MEAN CORPUSCULAR HGB CONC 29.1 G/DL (32.0-36.0); MEAN CORPUSCULAR VOLUME 74 FL (80-99); MEAN PLATELET VOLUME 6.5 FL (6.5-10.1); MONOCYTES % (AUTO) 15.7 % (1.0-10.0); PLATELET COUNT 105 K/UL (150-450); RED BLOOD COUNT 4.14 M/UL (4.70-6.10); RED CELL DISTRIBUTION WIDTH 22.3 % (11.6-14.8); WHITE BLOOD COUNT 4.3 K/UL (4.8-10.8)
[2017-09-10 06:54] LABS: MAGNESIUM 1.6 MG/DL (1.8-2.4); PHOSPHORUS 3.8 MG/DL (2.5-4.9)
[2017-09-10 07:49] LABS: ALANINE AMINOTRANSFERASE 53 U/L (12-78); ALBUMIN/GLOBULIN RATIO 0.6 (1.0-2.7); ANION GAP 9 mmol/L (5-15); ASPARTATE AMINO TRANSFERASE 165 U/L (15-37); CALCIUM 7.1 MG/DL (8.5-10.1); CARBON DIOXIDE 23 MMOL/L (21-32); CHLORIDE 107 MMOL/L (98-107); CREATININE 1.7 MG/DL (0.55-1.30); GLOMERULAR FILTRATION RATE 48.5 mL/min (>60); SODIUM 139 MMOL/L (136-145); TOTAL PROTEIN 6.3 G/DL (6.4-8.2)
[2017-09-10 08:00] VITALS: BP 160/97
--- NOTE | 2017-09-10 08:34 | Pulmonology Progress Note ---
Assessment/Plan Assessment/Plan IMPRESSION: 1. Possible pneumonia versus pulmonary edema. 2. Acute encephalopathy. 3. Acute renal failure. 4. Hypertension. 5. Pacemaker. 6. some congestion PLAN care noted CT chest negative respiratory care oxygen taper IV as able to off impression, plan, and exam edited and reviewed in detail care discussed with RN Subjective Allergies: Coded Allergies: No Known Allergies (Unverified , 09/07/17) Subjective minimal sob Objective Last 24 Hour Vital Signs Date Time Temp Pulse Resp B/P (MAP) Pulse Ox O2 Delivery O2 Flow Rate FiO2 09/10/17 04:15 98.0 86 21 135/75 98 Room Air 09/10/17 04:00 Nasal Cannula 2.0 09/10/17 00:00 98.2 94 21 113/72 98 09/10/17 00:00 Nasal Cannula 2.0 09/09/17 20:00 Nasal Cannula 2.0 09/09/17 20:00 99.1 87 21 131/80 97 09/09/17 16:00 98.2 86 20 124/69 99 Room Air 09/09/17 14:00 97.0 93 20 148/102 92 Nasal Cannula 20 09/09/17 12:00 98.0 87 20 128/75 87 Nasal Cannula 09/09/17 09:05 80 121/61 Intake and Output 09/09/17 09/10/17 19:00 07:00 Intake Total 1065 ml 1100 ml Output Total 300 ml 1300 ml Balance 765 ml -200 ml Intake Oral 810 ml IV Total 255 ml 1100 ml Output Urine Total 300 ml 1300 ml # Voids 1 # Bowel Movements 1 Objective GENERAL: A well-developed male, advanced age. LUNGS: Moderate air entry. No rhonchi or wheezes. CARDIAC: S1 and S2 regular rhythm. ABDOMEN: Soft and nontender. EXTREMITIES: No edema. NEUROLOGICAL: Grossly nonfocal, but confused. Microbiology Date/Time Source Procedure Growth Status 09/07/17 16:37 Blood Blood Culture - Preliminary NO GROWTH AFTER 48 HOURS Resulted 09/07/17 16:30 Blood Blood Culture - Preliminary NO GROWTH AFTER 48 HOURS Resulted Laboratory Tests 09/10/17 04:35: White Blood Count 4.3L, Red Blood Count 4.14L, Hemoglobin 8.9L, Hematocrit 30.6L , Mean Corpuscular Volume 74L, Mean Corpuscular Hemoglobin 21.5L, Mean Corpuscular Hemoglobin Concent 29.1L, Red Cell Distribution Width 22.3H, Platelet Count 105L, Mean Platelet Volume 6.5, Neutrophils (%) (Auto) 48.0, Lymphocytes (%) (Auto) 30.8, Monocytes (%) (Auto) 15.7H, Eosinophils (%) (Auto) 4.6H, Basophils (%) (Auto) 0.9, Sodium Level 139, Potassium Level 4.0, Chloride Level 107, Carbon Dioxide Level 23, Anion Gap 9, Blood Urea Nitrogen 40H, Creatinine 1.7H, Estimat Glomerular Filtration Rate 48.5, Glucose Level 105, Calcium Level 7.1L, Phosphorus Level 3.8, Magnesium Level 1.6L, Total Bilirubin 0.5, Aspartate Amino Transf (AST/SGOT) 165H, Alanine Aminotransferase (ALT/SGPT ) 53, Alkaline Phosphatase 161H, Total Creatine Kinase 1256H, Total Protein 6.3L , Albumin 2.3L, Globulin 4.0, Albumin/Globulin Ratio 0.6L Current Medications Medications (Trade) Dose Ordered Sig/Mando Route PRN Reason Start Time Stop Time Status Last Admin Dose Admin Acetaminophen (Tylenol) 1,000 mg BIDPRN PRN ORAL Mild Pain/Temp > 100.5 09/09/17 17:30 10/09/17 17:29 09/10/17 00:49 Amiodarone HCl (Cordarone) 200 mg DAILY ORAL 09/10/17 09:00 10/09/17 12:14 Aspirin (ASA) 81 mg DAILY ORAL 09/10/17 09:00 10/08/17 08:59 Ceftriaxone Sodium 1 gm/ Dextrose 55 ml @ 110 mls/hr Q24H IVPB 09/09/17 16:00 09/15/17 15:59 09/09/17 16:07 Guaifenesin/ Dextromethorphan (Robitussin DM) 5 ml Q4H PRN ORAL For Cough 09/09/17 14:45 10/08/17 14:44 09/10/17 04:53 Heparin Sodium (Porcine) (Heparin 5000 units/ml) 5,000 units EVERY 12 HOURS SUBQ 09/09/17 21:00 10/08/17 08:59 Levothyroxine Sodium (Synthroid) 50 mcg DAILY@0630 ORAL 09/10/17 06:30 10/10/17 06:29 09/10/17 06:03 Sodium Chloride 1,000 ml @ 100 mls/hr Q10H IV 09/09/17 15:00 10/08/17 14:59 09/10/17 01:00 CECY VALLEJO Sep 10, 2017 08:34
[2017-09-10] MEDS: Aspirin Baby 81mg ORAL SCH (09:00)
[2017-09-10] MEDS: Heparin 5000 units/ml inj SUBQ SCH ×2 (09:00→21:00)
[2017-09-10] MEDS: Amiodarone 200mg tab ORAL SCH (09:34)
--- NOTE | 2017-09-10 10:45 | Nephrology Progress Note ---
Assessment/Plan Plan ARF + Rhabdo resolving. Hypomagnesemia - correct. Subjective Subjective No new c/o Objective Objective Last 24 Hour Vital Signs Date Time Temp Pulse Resp B/P (MAP) Pulse Ox O2 Delivery O2 Flow Rate FiO2 09/10/17 08:00 97.9 87 20 160/97 100 09/10/17 04:15 98.0 86 21 135/75 98 Room Air 09/10/17 04:00 Nasal Cannula 2.0 09/10/17 00:00 98.2 94 21 113/72 98 09/10/17 00:00 Nasal Cannula 2.0 09/09/17 20:00 Nasal Cannula 2.0 09/09/17 20:00 99.1 87 21 131/80 97 09/09/17 16:00 98.2 86 20 124/69 99 Room Air 09/09/17 14:00 97.0 93 20 148/102 92 Nasal Cannula 20 09/09/17 12:00 98.0 87 20 128/75 87 Nasal Cannula Intake and Output 09/09/17 09/10/17 19:00 07:00 Intake Total 1065 ml 1100 ml Output Total 300 ml 1300 ml Balance 765 ml -200 ml Intake Oral 810 ml IV Total 255 ml 1100 ml Output Urine Total 300 ml 1300 ml # Voids 1 # Bowel Movements 1 Laboratory Tests 09/10/17 04:35: White Blood Count 4.3L, Red Blood Count 4.14L, Hemoglobin 8.9L, Hematocrit 30.6L , Mean Corpuscular Volume 74L, Mean Corpuscular Hemoglobin 21.5L, Mean Corpuscular Hemoglobin Concent 29.1L, Red Cell Distribution Width 22.3H, Platelet Count 105L, Mean Platelet Volume 6.5, Neutrophils (%) (Auto) 48.0, Lymphocytes (%) (Auto) 30.8, Monocytes (%) (Auto) 15.7H, Eosinophils (%) (Auto) 4.6H, Basophils (%) (Auto) 0.9, Sodium Level 139, Potassium Level 4.0, Chloride Level 107, Carbon Dioxide Level 23, Anion Gap 9, Blood Urea Nitrogen 40H, Creatinine 1.7H, Estimat Glomerular Filtration Rate 48.5, Glucose Level 105, Calcium Level 7.1L, Phosphorus Level 3.8, Magnesium Level 1.6L, Total Bilirubin 0.5, Aspartate Amino Transf (AST/SGOT) 165H, Alanine Aminotransferase (ALT/SGPT ) 53, Alkaline Phosphatase 161H, Total Creatine Kinase 1256H, Total Protein 6.3L , Albumin 2.3L, Globulin 4.0, Albumin/Globulin Ratio 0.6L Height (Feet): 6 Height (Inches): 1.00 Weight (Pounds): 175 Objective Cv RR Lungs CTa Abd SNT. BS + E No CCE GINGER MILLER Sep 10, 2017 10:45
--- NOTE | 2017-09-10 11:13 | Infectious Diseases Prog Note ---
Assessment/Plan Assessment/Plan antibiotics : ceftriaxone A 1. pneumonia 2. renal failure improving 3. HTN 4. atrial fibrillation P 1. continue ceftriaxone 2. will follow up cultures Subjective Constitutional: Denies: fever, chills Respiratory: Reports: dry cough, Denies: shortness of breath Gastrointestinal/Abdominal: Denies: nausea, vomiting, diarrhea Musculoskeletal: Denies: pain Allergies: Coded Allergies: No Known Allergies (Unverified , 09/07/17) Objective Vital Signs Last 24 Hour Vital Signs Date Time Temp Pulse Resp B/P (MAP) Pulse Ox O2 Delivery O2 Flow Rate FiO2 09/10/17 10:41 97.9 09/10/17 08:00 97.9 87 20 160/97 100 09/10/17 04:15 98.0 86 21 135/75 98 Room Air 09/10/17 04:00 Nasal Cannula 2.0 09/10/17 00:00 98.2 94 21 113/72 98 09/10/17 00:00 Nasal Cannula 2.0 09/09/17 20:00 Nasal Cannula 2.0 09/09/17 20:00 99.1 87 21 131/80 97 09/09/17 16:00 98.2 86 20 124/69 99 Room Air 09/09/17 14:00 97.0 93 20 148/102 92 Nasal Cannula 20 09/09/17 12:00 98.0 87 20 128/75 87 Nasal Cannula Height (Feet): 6 Height (Inches): 1.00 Weight (Pounds): 175 Respiratory/Chest: lungs clear Cardiovascular: normal rate, regular rhythm, no gallop/murmur Abdomen: soft, non tender Extremities: no edema Microbiology Date/Time Source Procedure Growth Status 09/07/17 16:37 Blood Blood Culture - Preliminary NO GROWTH AFTER 48 HOURS Resulted 09/07/17 16:30 Blood Blood Culture - Preliminary NO GROWTH AFTER 48 HOURS Resulted Laboratory Tests Test 09/10/17 04:35 White Blood Count 4.3 K/UL (4.8-10.8) L Red Blood Count 4.14 M/UL (4.70-6.10) L Hemoglobin 8.9 G/DL (14.2-18.0) L Hematocrit 30.6 % (42.0-52.0) L Mean Corpuscular Volume 74 FL (80-99) L Mean Corpuscular Hemoglobin 21.5 PG (27.0-31.0) L Mean Corpuscular Hemoglobin Concent 29.1 G/DL (32.0-36.0) L Red Cell Distribution Width 22.3 % (11.6-14.8) H Platelet Count 105 K/UL (150-450) L Mean Platelet Volume 6.5 FL (6.5-10.1) Neutrophils (%) (Auto) 48.0 % (45.0-75.0) Lymphocytes (%) (Auto) 30.8 % (20.0-45.0) Monocytes (%) (Auto) 15.7 % (1.0-10.0) H Eosinophils (%) (Auto) 4.6 % (0.0-3.0) H Basophils (%) (Auto) 0.9 % (0.0-2.0) Sodium Level 139 MMOL/L (136-145) Potassium Level 4.0 MMOL/L (3.5-5.1) Chloride Level 107 MMOL/L (98-107) Carbon Dioxide Level 23 MMOL/L (21-32) Anion Gap 9 mmol/L (5-15) Blood Urea Nitrogen 40 mg/dL (7-18) H Creatinine 1.7 MG/DL (0.55-1.30) H Estimat Glomerular Filtration Rate 48.5 mL/min (>60) Glucose Level 105 MG/DL (74-106) Calcium Level 7.1 MG/DL (8.5-10.1) L Phosphorus Level 3.8 MG/DL (2.5-4.9) Magnesium Level 1.6 MG/DL (1.8-2.4) L Total Bilirubin 0.5 MG/DL (0.2-1.0) Aspartate Amino Transf (AST/SGOT) 165 U/L (15-37) H Alanine Aminotransferase (ALT/SGPT) 53 U/L (12-78) Alkaline Phosphatase 161 U/L (46-116) H Total Creatine Kinase 1256 U/L (26-308) H Total Protein 6.3 G/DL (6.4-8.2) L Albumin 2.3 G/DL (3.4-5.0) L Globulin 4.0 g/dL Albumin/Globulin Ratio 0.6 (1.0-2.7) L USMAN SLAES 27, 2017 11:13
[2017-09-10 12:00] VITALS: BP 137/85
--- NOTE | 2017-09-10 13:52 | Diagnostic Imaging Report ---
Indication:Elevated Bun and Creatinine. Technique: Grayscale and duplex Doppler imaging of the kidneys performed. Comparison: None Findings: The size, contour, and echogenicity of both kidneys are within normal limits. Both kidneys measure about 10 cm in length. There is no hydronephrosis. The IVC and urinary bladder are unremarkable. Crawford catheter is noted. IMPRESSION: Negative study
[2017-09-10 16:00] VITALS: BP 110/76
[2017-09-10] MEDS: cefTRIAXone 1 GM in D5W 55 ML IVPB SCH (18:23)
[2017-09-10 20:00] VITALS: BP 136/86
--- NOTE | 2017-09-10 23:15 | Progress Note ---
DATE: 09/11/2017 INTERNAL MEDICINE PROGRESS NOTE SUBJECTIVE: The patient is awake, alert, complaining of cough. Swallow evaluation was noted. Slight dysphagia seen. The patient continues to improve with regard to metabolic parameters with IV hydration. OBJECTIVE: LUNGS: Few rhonchi. HEART: Regular rhythm and rate. Normal S1, S2. ABDOMEN: Soft. No edema. DIAGNOSTIC DATA: CAT scan of the chest, no acute disease. IMPRESSION: 1. Acute renal failure, recovering. 2. Rhabdomyolysis resolving. 3. Permanent pacemaker appears with stable function. 4. Hypertension, controlled. 5. Possible component of aspiration with pneumonia, clinically improved. PLAN: 1. Taper off IV fluids, and metabolic and renal parameters normalized. 2. Respiratory hygiene. 3. Aspiration precautions and speech therapy. 4. Antimicrobials per Infectious Disease customer relations consultant. 5. Discharge planning. Jasen Contreras M.D. DR: RAJENDRA JOB#: [id number] CC:
[2017-09-11] VITALS: BP 131/92
[2017-09-11] MEDS: guaiFENesin DM 100mg/5ml ORAL PRN ×3 (01:44→12:48)
[2017-09-11 04:00] VITALS: BP 127/79
[2017-09-11 08:00] VITALS: BP 134/81
--- NOTE | 2017-09-11 08:30 | Pulmonology Progress Note ---
Assessment/Plan Assessment/Plan IMPRESSION: 1. Possible pneumonia versus pulmonary edema. 2. Acute encephalopathy. 3. Acute renal failure. 4. Hypertension. 5. Pacemaker. 6. some congestion PLAN care noted CT chest negative respiratory care as is oxygen consider PO antibiotics impression, plan, and exam edited and reviewed in detail care discussed with RN Subjective Allergies: Coded Allergies: No Known Allergies (Unverified , 09/07/17) Subjective minimal sob events noted Objective Last 24 Hour Vital Signs Date Time Temp Pulse Resp B/P (MAP) Pulse Ox O2 Delivery O2 Flow Rate FiO2 09/11/17 04:00 97.7 86 18 127/79 98 09/11/17 00:00 99.3 92 18 131/92 97 09/10/17 20:00 100.0 85 20 136/86 99 09/10/17 16:00 99.1 86 20 110/76 100 09/10/17 12:00 97.0 88 20 137/85 100 09/10/17 10:41 97.9 Intake and Output 09/10/17 09/11/17 19:00 07:00 Intake Total 1315 ml 900 ml Output Total 2000 ml 2000 ml Balance -685 ml -1100 ml Intake Oral 360 ml IV Total 955 ml 900 ml Output Urine Total 2000 ml 2000 ml Objective GENERAL: A well-developed male, advanced age. LUNGS: Moderate air entry. No rhonchi or wheezes. CARDIAC: S1 and S2 regular rhythm. ABDOMEN: Soft and nontender. EXTREMITIES: No edema. NEUROLOGICAL: Grossly nonfocal, but confused. Microbiology Date/Time Source Procedure Growth Status 09/08/17 12:15 Sputum Gram Stain - Final Resulted 09/08/17 12:15 Sputum Sputum Culture Pending Resulted Current Medications Medications (Trade) Dose Ordered Sig/Mando Route PRN Reason Start Time Stop Time Status Last Admin Dose Admin Acetaminophen (Tylenol) 1,000 mg BIDPRN PRN ORAL Mild Pain/Temp > 100.5 09/09/17 17:30 10/09/17 17:29 09/10/17 21:08 Amiodarone HCl (Cordarone) 200 mg DAILY ORAL 09/10/17 09:00 10/09/17 12:14 09/10/17 09:34 Aspirin (ASA) 81 mg DAILY ORAL 09/10/17 09:00 10/08/17 08:59 Ceftriaxone Sodium 1 gm/ Dextrose 55 ml @ 110 mls/hr Q24H IVPB 09/09/17 16:00 09/15/17 15:59 09/10/17 18:23 Guaifenesin/ Dextromethorphan (Robitussin DM) 5 ml Q4H PRN ORAL For Cough 09/09/17 14:45 10/08/17 14:44 09/11/17 06:25 Heparin Sodium (Porcine) (Heparin 5000 units/ml) 5,000 units EVERY 12 HOURS SUBQ 09/09/17 21:00 10/08/17 08:59 Levothyroxine Sodium (Synthroid) 50 mcg DAILY@0630 ORAL 09/10/17 06:30 10/10/17 06:29 09/11/17 06:10 Sodium Chloride 1,000 ml @ 100 mls/hr Q10H IV 09/09/17 15:00 10/08/17 14:59 09/11/17 06:10 CECY VALLEJO Sep 11, 2017 08:30
[2017-09-11] MEDS: Aspirin Baby 81mg ORAL SCH (08:34)
[2017-09-11] MEDS: Amiodarone 200mg tab ORAL SCH (08:34)
[2017-09-11] MEDS: Acetaminophen 500mg (ES) tab ORAL PRN (08:35)
[2017-09-11] MEDS: Heparin 5000 units/ml inj SUBQ SCH (08:36)
[2017-09-11 12:00] VITALS: BP 144/84
--- NOTE | 2017-09-11 12:52 | Infectious Diseases Prog Note ---
Assessment/Plan Assessment/Plan A 1. pneumonia/ bronchitis 2. renal failure improving 3. HTN 4. atrial fibrillation P 1. discontinue ceftriaxone 2. discontinue Crawford 3. agree with discharge Subjective ROS Limited/Unobtainable: No Constitutional: Reports: no symptoms Respiratory: Reports: productive cough Cardiovascular: Reports: no symptoms Gastrointestinal/Abdominal: Reports: no symptoms Genitourinary: Reports: no symptoms Allergies: Coded Allergies: No Known Allergies (Unverified , 09/07/17) Objective Vital Signs Last 24 Hour Vital Signs Date Time Temp Pulse Resp B/P (MAP) Pulse Ox O2 Delivery O2 Flow Rate FiO2 09/11/17 08:00 99.0 85 20 134/81 100 09/11/17 04:00 97.7 86 18 127/79 98 09/11/17 00:00 99.3 92 18 131/92 97 09/10/17 20:00 100.0 85 20 136/86 99 09/10/17 16:00 99.1 86 20 110/76 100 Height (Feet): 6 Height (Inches): 1.00 Weight (Pounds): 175 General Appearance: no acute distress HEENT: mucous membranes moist Respiratory/Chest: rhonchi - bilaterally Cardiovascular: normal rate, pacemaker/AICD Abdomen: soft, non tender Extremities: no edema Neurologic/Psychiatric: alert, oriented x 3, responsive Current Medications Medications (Trade) Dose Ordered Sig/Mando Route PRN Reason Start Time Stop Time Status Last Admin Dose Admin Acetaminophen (Tylenol) 1,000 mg BIDPRN PRN ORAL Mild Pain/Temp > 100.5 09/09/17 17:30 10/09/17 17:29 09/11/17 08:35 Amiodarone HCl (Cordarone) 200 mg DAILY ORAL 09/10/17 09:00 10/09/17 12:14 09/11/17 08:34 Aspirin (ASA) 81 mg DAILY ORAL 09/10/17 09:00 10/08/17 08:59 09/11/17 08:34 Ceftriaxone Sodium 1 gm/ Dextrose 55 ml @ 110 mls/hr Q24H IVPB 09/09/17 16:00 09/15/17 15:59 09/10/17 18:23 Guaifenesin/ Dextromethorphan (Robitussin DM) 5 ml Q4H PRN ORAL For Cough 09/09/17 14:45 10/08/17 14:44 09/11/17 06:25 Heparin Sodium (Porcine) (Heparin 5000 units/ml) 5,000 units EVERY 12 HOURS SUBQ 09/09/17 21:00 10/08/17 08:59 Levothyroxine Sodium (Synthroid) 50 mcg DAILY@0630 ORAL 09/10/17 06:30 10/10/17 06:29 09/11/17 06:10 Sodium Chloride 1,000 ml @ 100 mls/hr Q10H IV 09/09/17 15:00 10/08/17 14:59 09/11/17 06:10 SUSY PERALTA Sep 11, 2017 12:52
[2017-09-11] MEDS ORDERED: DOXYCYCLINE HY150 M1 PO ×2 (14:33→14:39)
--- NOTE | 2017-09-11 15:46 | Nephrology Progress Note ---
Assessment/Plan Plan ARF + Rhabdo resolving. Hypomagnesemia - correct. Recheck labs. Subjective Subjective No new c/o Objective Objective Last 24 Hour Vital Signs Date Time Temp Pulse Resp B/P (MAP) Pulse Ox O2 Delivery O2 Flow Rate FiO2 09/11/17 12:00 96.9 100 20 144/84 100 09/11/17 08:00 99.0 85 20 134/81 100 09/11/17 04:00 97.7 86 18 127/79 98 09/11/17 00:00 99.3 92 18 131/92 97 09/10/17 20:00 100.0 85 20 136/86 99 09/10/17 16:00 99.1 86 20 110/76 100 Intake and Output 09/10/17 09/11/17 19:00 07:00 Intake Total 1315 ml 900 ml Output Total 2000 ml 2000 ml Balance -685 ml -1100 ml Intake Oral 360 ml IV Total 955 ml 900 ml Output Urine Total 2000 ml 2000 ml Height (Feet): 6 Height (Inches): 1.00 Weight (Pounds): 175 Objective Cv RR Lungs CTa Abd SNT. BS + E No CCE GINGER MILLER Sep 11, 2017 15:46
[2017-09-11 15:59] VITALS: BP 139/88
[2017-09-11] MEDS ORDERED: NS 500ML ONE (16:08)
[2017-09-11] MEDS ORDERED: Tubing IV Secondary IV ONE ×3 (16:08)
--- NOTE | 2017-09-12 17:32 | Discharge Summary ---
Discharge Summary Hospital Course Date of Admission Sep 07, 2017 at 16:48 Date of Discharge Sep 11, 2017 at 16:09 Admitting Diagnosis ALTERD MENTAL STATUS HPI Shady Knowles is a 71 year old male who was admitted on Sep 07, 2017 at 16:48 for Altered Mental Status Hospital Course [id number] Discharge Discharge Disposition Patient was discharged to Home with Discharge Diagnoses: Annita Carlos NP Sep 12, 2017 17:32
--- NOTE | 2017-09-13 01:45 | Discharge Summary 2 SIG ---
DATE OF ADMISSION: 09/07/2017 DATE OF DISCHARGE: 09/11/2017 CONSULTANTS: 1. Frank Bolton M.D. 2. Sharon Bynum M.D. 3. Radha Aguilar M.D. BRIEF HOSPITAL COURSE: The patient is a 71-year-old male, who was taken by EMS to ED. The patient was found altered by family members. History was unknown except he had a recent pacemaker. On evaluation at ED, the patient was initially hypotensive and blood pressure responded to IV fluids. He continued to be altered. Head CT was negative for acute intracranial disease and urine toxicology was positive for opiates. Narcan was given. The patient became more alert. Laboratories were remarkable for hypocalcemia, which was supplemented, mild hyperkalemia, and troponin was 0.11. Total CK was 5117. BUN was 81 and creatinine was 3.5. There was concern about possible aspiration. Initial chest x-ray showed no acute abnormality. He was initially started on ceftriaxone pending culture results. He was given IV hydration and electrolytes were repleted. He had a chest CT that showed trace basilar pleural effusion with presence of a pacemaker. Echocardiogram done showed ejection fraction of 45% to 50%. There was no aortic regurgitation. There was concern for possible sinusitis. Maxillofacial CT done showed no acute findings. Renal ultrasound was likewise unremarkable. Renal function improved. CK down trended. He was given respiratory hygiene and was placed on aspiration precautions and speech therapy. Blood culture and sputum cure were normal. Antibiotic was discontinued. The patient was discharged home with home health. FINAL DIAGNOSES: 1. Acute renal failure, recovering. 2. Rhabdomyolysis, resolving. 3. Permanent pacemaker appeared with stable function. 4. Hypertension. 5. Possible component of aspiration with pneumonia, clinically improved. DISPOSITION: The patient was discharged home with home health. DISCHARGE MEDICATIONS: Refer to medication list. DISCHARGE INSTRUCTIONS: Followup with PMD. Jasen Contreras M.D. I have been assigned to dictate discharge summary on this account and I was not involved in the patient's management. Annita Carlos N.P. DR: TAE JOB#: [id number] CC: [id number]
== END 2017-09-11 16:09 | disposition home health service (06) | DRG 682 ==
LOC: EDBD 15:39 → EMR 16:00 → 2E 16:48 → EDBEDREQ 17:25 → 4E 09-09 14:05
DX: N17.9 Acute kidney failure, unspecified (principal); J69.0 Pneumonitis due to inhalation of food and vomit; G93.41 Metabolic encephalopathy; I50.33 Acute on chronic diastolic (congestive) heart failure; E44.0 Moderate protein-calorie malnutrition; M62.82 Rhabdomyolysis; E83.51 Hypocalcemia; E83.42 Hypomagnesemia; E87.5 Hyperkalemia; I48.0 Paroxysmal atrial fibrillation; I13.0 Hypertensive heart and chronic kidney disease with heart failure and stage 1 through stage 4 chronic kidney disease, or unspecified chronic kidney disease; N18.9 Chronic kidney disease, unspecified; Z95.0 Presence of cardiac pacemaker; T40.601A Poisoning by unspecified narcotics, accidental (unintentional), initial encounter; Y92.9 Unspecified place or not applicable; F11.90 Opioid use, unspecified, uncomplicated; Z68.23 Body mass index [BMI] 23.0-23.9, adult; D64.9 Anemia, unspecified
CPT/HCPCS: 36415; 70450; 70486; 71010; 71250; 76775; 80048; 80053; 80307; 80329; 81003; 82140; 82248; 82550; 82553; 83605; 83735; 83880; 84100; 84484; 85025; 85610; 85730; 87040; 87070; 87205; 93005; 93306; 99285